=== PATIENT | male | born 1985 | race Caucasian/White ===

== ENCOUNTER 2024-07-09 08:11 | Emergency (ER) | payer OTHER ==
[~2024-07-09] VITALS: Ht 175.3 cm; Wt 75.5 kg
[2024-07-09] MEDS: methylPREDNISolone 125MG 2ML VIAL IV ONE (10:04)
[2024-07-09] MEDS: KETOROLAC 30 MG/ML 1ML VIAL IV ONE (10:04)
[2024-07-09] MEDS: LIDOCAINE 5% (LIDODERM) PATCH TD ONE (10:04)
[2024-07-09] MEDS: CYCLOBENZAPRINE 10MG TABLET PO ONE (10:04)
[2024-07-09] MEDS: ONDANSETRON 4MG 2ML VIAL IV ONE (11:32)
[2024-07-09] MEDS: MORPHINE 4 MG/ML 1ML VIAL IV ONE ×2 (11:33→12:13)
[2024-07-09] MEDS ORDERED: CYCL-707 PO (12:44)
[2024-07-09] MEDS ORDERED: IBUP-1022 PO (12:44)
[2024-07-09] MEDS ORDERED: LIDO5DIS41 TOP (12:44)
[2024-07-09] MEDS ORDERED: MEDR4PAK PO (12:44)
[2024-07-09 12:53] VITALS: BP 129/93; TEMP 98.4; O2SAT 100
== END 2024-07-09 12:59 | disposition home or self-care (01) ==
LOC: M ED 08:11
DX: S39.012A Strain of muscle, fascia and tendon of lower back, initial encounter (principal); M54.32 Sciatica, left side; M54.16 Radiculopathy, lumbar region; M51.372 Other intervertebral disc degeneration, lumbosacral region with discogenic back pain and lower extremity pain; M43.17 Spondylolisthesis, lumbosacral region; F12.10 Cannabis abuse, uncomplicated; F10.10 Alcohol abuse, uncomplicated; Z79.1 Long term (current) use of non-steroidal anti-inflammatories (NSAID); Z79.899 Other long term (current) drug therapy
CPT/HCPCS: 72131; 96374; 96375; 96376; 99283; J1885; J2405; J2919